=== PATIENT | female | born 1970 | race Caucasian/White ===

== ENCOUNTER → 2016-09-10 | Outpatient (CLI) | payer OTHER | END | disposition home or self-care (01) | LOC: CFH 08:57 → MERGE 09:15 | PROVIDERS: ATTEND Physician Assistant Medical | DX: K21.9 Gastro-esophageal reflux disease without esophagitis (principal); K76.0 Fatty (change of) liver, not elsewhere classified; E07.9 Disorder of thyroid, unspecified; Z72.4 Inappropriate diet and eating habits; F17.200 Nicotine dependence, unspecified, uncomplicated; Z98.84 Bariatric surgery status | CPT/HCPCS: 74241 ==